=== PATIENT | male | born 1940 | race Caucasian/White ===

== ENCOUNTER 2016-12-11 19:19 | Inpatient (IN) | payer MEDICARE, OTHER ==
[~2016-12-11 19:19] MED LIST: ALBUTEROL0.83 MG/ML INH; AMLODIPINE BESYL5 MG PO; ASPIR 8181 M1 PO; AVELOX400 MG PO; BYSTOLIC5 M1 PO; CALCIUM + VITA1 EAC4 PO; CALCIUM W/VITA PO; CARDURA8 M1 PO; CARDURA8 MG PO; CELLCEPT250 M1 PO; DIALYVITE TABL1 EACH PO; ECULIZUMAB IV; FINASTERIDE5 M2 PO; FISH OIL 1,0001 CA PO; FISH OIL 1,0001 EA10 PO; HYCODAN SYRUP480 ML PO; NULOJIX250 MG IV; OMEPRAZOLE20 M3 PO; PENICILLIN V P500 M1 PO; PRAVACHOL40 M1 PO; PRAVACHOL40 MG PO; PREDNISONE5 M1 PO; STERAPRED5 MG/DOSE- PO; ZYLOPRIM100 M1 PO; ZYLOPRIM100 MG PO; [UNRECOGNIZED DRUG - OTHER] PO
[2016-12-11] MEDS ORDERED: COZAAR25 M1 PO (19:37)
[2016-12-11] MEDS ORDERED: ASPIRIN EC81 MG PO (19:38)
[2016-12-11 20:08] LABS: URINE BILIRUBIN NEGATIVE (NEG); URINE BLOOD LARGE (NEG); URINE GLUCOSE (UA) NEGATIVE (NEG); URINE KETONE NEGATIVE (NEG); URINE LEUKOCYTE ESTERASE POSITIVE (NEG); URINE NITRITE NEGATIVE (NEG); URINE PROTEIN LARGE (NEG); URINE SPECIFIC GRAVITY 1.005 (1.003-1.030)
[2016-12-11 20:09] LABS: URINE APPEARANCE CLEAR; URINE COLOR YELLOW
[2016-12-11 20:13] LABS: URINE BACTERIA 3+; URINE EPITHELIAL CELLS 0 /[HPF] (0-10)
[2016-12-11 20:14] LABS: URINE RBC 15-25 /[HPF] (0-5)
[2016-12-11 20:17] LABS: URINE WBC 20-30 /[HPF] (0-5)
[2016-12-11 20:29] LABS: BASO % 0.5 % (0-2); EOS % 0.7 % (0-7); HGB-HEMOGLOBIN 10.4 gm/dl (13.5-17.0); IMMATURE GRANULOCYTES ABSOLUTE 0.03 tho/cmm (0-0.03); IMMATURE GRANULOCYTES PERCENT 0.7 % (0-0.3); LYMPH % 20.1 % (20-45); LYMPH ABSOLUTE COUNT 0.8 tho/cmm (0.8-4.5); MCH (MEAN CORPUSCULAR HGB) 30.7 pg (28.0-32.0); MCHC MEAN CORPUSCULAR HGB CONC 33.5 % (32.0-36.0); MCV (MEAN CELL VOLUME) 91.4 fl (82.0-96.0); MEAN PLATELET VOLUME 8.5 cmc (9.4-12.4); MONO % 16.7 % (0-12); MONOCYTE ABSOLUTE COUNT 0.7 tho/cmm (0.0-1.2); NEUTROPHIL ABSOLUTE COUNT 2.5 tho/cmm (1.6-8.0); NEUTROPHIL-AUTOMATED 2.5 tho/cmm (1.6-8.0); NEUTROPHILS % 61.3 % (40-80); PLATELET COUNT 279 tho/cmm (150-450); RED BLOOD COUNT 3.39 mil/cmm (4.40-5.70); RED CELL DISTRIBUTION WIDTH 12.4 % (12.4-16.4); WHITE BLOOD COUNT 4.1 tho/cmm (4.0-10.0)
[2016-12-11 20:40] LABS: ALBUMIN 3.2 g/dl (3.5-5.0); ALKALINE PHOSPHATASE 106 U/L (33-138); ALT/SGPT 27 U/L (12-78); ANION GAP 12 mmol/L (0-20); AST/SGOT 43 U/L (10-40); BILIRUBIN,TOTAL 0.2 mg/dl (0.0-1.5); BLOOD UREA NITROGEN 37 mg/dl (6-24); CALCIUM 8.3 mg/dl (8.5-10.5); CARBON DIOXIDE-VENOUS 27 mmol/L (22-32); CHLORIDE 99 mmol/l (96-110); CREATININE 1.77 mg/dl (0.60-1.30); GLUCOSE 101 mg/dL (70-110); POTASSIUM 4.6 mmol/L (3.7-5.1); SODIUM 133 mmol/L (135-145); eGFR VALUE FOR BLACK 43 mL/Min
[2016-12-11 20:55] LABS: PROCALCITONIN 0.08 ng/ml (0.05-0.09)
[2016-12-12 05:32] LABS: BASO % 0.5 % (0-2); EOS % 0.3 % (0-7); HCT-HEMATOCRIT 26.5 % (36.0-53.5); HGB-HEMOGLOBIN 8.9 gm/dl (13.5-17.0); IMMATURE GRANULOCYTES ABSOLUTE 0.02 tho/cmm (0-0.03); IMMATURE GRANULOCYTES PERCENT 0.5 % (0-0.3); LYMPH % 18.9 % (20-45); LYMPH ABSOLUTE COUNT 0.8 tho/cmm (0.8-4.5); MCH (MEAN CORPUSCULAR HGB) 30.4 pg (28.0-32.0); MCHC MEAN CORPUSCULAR HGB CONC 33.6 % (32.0-36.0); MCV (MEAN CELL VOLUME) 90.4 fl (82.0-96.0); MEAN PLATELET VOLUME 8.2 cmc (9.4-12.4); MONO % 20.5 % (0-12); MONOCYTE ABSOLUTE COUNT 0.8 tho/cmm (0.0-1.2); NEUTROPHIL ABSOLUTE COUNT 2.4 tho/cmm (1.6-8.0); NEUTROPHIL-AUTOMATED 2.4 tho/cmm (1.6-8.0); NEUTROPHILS % 59.3 % (40-80); PLATELET COUNT 223 tho/cmm (150-450); RED BLOOD COUNT 2.93 mil/cmm (4.40-5.70); RED CELL DISTRIBUTION WIDTH 12.5 % (12.4-16.4)
[2016-12-12 05:48] LABS: ANION GAP 14 mmol/L (0-20); BLOOD UREA NITROGEN 36 mg/dl (6-24); CALCIUM 7.4 mg/dl (8.5-10.5); CARBON DIOXIDE-VENOUS 23 mmol/L (22-32); CHLORIDE 105 mmol/l (96-110); CREATININE 1.93 mg/dl (0.60-1.30); GLUCOSE 98 mg/dL (70-110); MAGNESIUM 2.3 mg/dl (1.3-2.6); PHOSPHOROUS 3.4 mg/dl (2.5-4.9); POTASSIUM 4.4 mmol/L (3.7-5.1); SODIUM 138 mmol/L (135-145); eGFR VALUE FOR BLACK 38 mL/Min
[2016-12-12 06:35] LABS: PROCALCITONIN 0.12 ng/ml (0.05-0.09)
[2016-12-12] MEDS ORDERED: INVANZ1000 MG/VI IV (15:07)
[2016-12-13 03:20] LABS: URINE PRT/CR RATIO 5.47 Ratio (0.0-0.20)
[2016-12-13 03:22] LABS: URINE TOTAL PROTEIN-RANDOM 487.2 mg/dl (<11.8)
[2016-12-13 06:22] LABS: ANION GAP 13 mmol/L (0-20); BLOOD UREA NITROGEN 38 mg/dl (6-24); CALCIUM 7.3 mg/dl (8.5-10.5); CARBON DIOXIDE-VENOUS 24 mmol/L (22-32); CHLORIDE 108 mmol/l (96-110); FERRITIN 509 ng/ml (22-388); GLUCOSE 99 mg/dL (70-110); MAGNESIUM 2.5 mg/dl (1.3-2.6); PHOSPHOROUS 4.4 mg/dl (2.5-4.9); POTASSIUM 4.1 mmol/L (3.7-5.1); SODIUM 141 mmol/L (135-145); eGFR VALUE FOR BLACK 29 mL/Min
[2016-12-13 06:27] LABS: BASO % 0.2 % (0-2); HGB-HEMOGLOBIN 9.2 gm/dl (13.5-17.0); IMMATURE GRANULOCYTES ABSOLUTE 0.12 tho/cmm (0-0.03); IMMATURE GRANULOCYTES PERCENT 2.3 % (0-0.3); LYMPH % 12.8 % (20-45); LYMPH ABSOLUTE COUNT 0.7 tho/cmm (0.8-4.5); MCHC MEAN CORPUSCULAR HGB CONC 32.9 % (32.0-36.0); MCV (MEAN CELL VOLUME) 91.2 fl (82.0-96.0); MEAN PLATELET VOLUME 8.8 cmc (9.4-12.4); MONO % 16.8 % (0-12); MONOCYTE ABSOLUTE COUNT 0.9 tho/cmm (0.0-1.2); NEUTROPHIL ABSOLUTE COUNT 3.6 tho/cmm (1.6-8.0); NEUTROPHIL-AUTOMATED 3.6 tho/cmm (1.6-8.0); NEUTROPHILS % 67.9 % (40-80); PLATELET COUNT 184 tho/cmm (150-450); RED BLOOD COUNT 3.07 mil/cmm (4.40-5.70); RED CELL DISTRIBUTION WIDTH 12.8 % (12.4-16.4); WHITE BLOOD COUNT 5.3 tho/cmm (4.0-10.0)
[2016-12-13 06:32] LABS: IRON BINDING CAPACITY 170 ug/dl (250-450)
[2016-12-13 06:47] LABS: CREATININE 2.45 mg/dl (0.60-1.30)
[2016-12-13 07:00] LABS: IRON <10 ug/dl (49-181)
[2016-12-13 17:22] LABS: URINE CREATININE-RANDOM 123 mg/dl (30-125); URINE SODIUM-RANDOM 14 mmol/L (20-110)
[2016-12-14 05:13] LABS: EOS % 0.8 % (0-7); HCT-HEMATOCRIT 25.2 % (36.0-53.5); HGB-HEMOGLOBIN 8.3 gm/dl (13.5-17.0); IMMATURE GRANULOCYTES ABSOLUTE 0.02 tho/cmm (0-0.03); IMMATURE GRANULOCYTES PERCENT 0.5 % (0-0.3); LYMPH % 22.8 % (20-45); LYMPH ABSOLUTE COUNT 0.9 tho/cmm (0.8-4.5); MCHC MEAN CORPUSCULAR HGB CONC 32.9 % (32.0-36.0); MEAN PLATELET VOLUME 8.8 cmc (9.4-12.4); MONO % 18.8 % (0-12); MONOCYTE ABSOLUTE COUNT 0.7 tho/cmm (0.0-1.2); NEUTROPHIL ABSOLUTE COUNT 2.1 tho/cmm (1.6-8.0); NEUTROPHIL-AUTOMATED 2.1 tho/cmm (1.6-8.0); NEUTROPHILS % 57.1 % (40-80); PLATELET COUNT 134 tho/cmm (150-450); RED BLOOD COUNT 2.77 mil/cmm (4.40-5.70); RED CELL DISTRIBUTION WIDTH 12.7 % (12.4-16.4); WHITE BLOOD COUNT 3.7 tho/cmm (4.0-10.0)
[2016-12-14 05:28] LABS: ALB/GLOB RATIO 0.6 (0.8-2.0); ALBUMIN 1.8 g/dl (3.5-5.0); ALKALINE PHOSPHATASE 61 U/L (33-138); ALT/SGPT 28 U/L (12-78); ANION GAP 11 mmol/L (0-20); AST/SGOT 36 U/L (10-40); BILIRUBIN,TOTAL 0.1 mg/dl (0.0-1.5); BLOOD UREA NITROGEN 46 mg/dl (6-24); C-REACTIVE PROTEIN 13.8 mg/dl (0-0.9); CARBON DIOXIDE-VENOUS 24 mmol/L (22-32); CHLORIDE 109 mmol/l (96-110); CREATININE 2.76 mg/dl (0.60-1.30); GLUCOSE 102 mg/dL (70-110); POTASSIUM 3.9 mmol/L (3.7-5.1); SODIUM 140 mmol/L (135-145); eGFR VALUE FOR BLACK 25 mL/Min
[2016-12-15 05:28] LABS: ALBUMIN 1.8 g/dl (3.5-5.0); ANION GAP 15 mmol/L (0-20); BLOOD UREA NITROGEN 46 mg/dl (6-24); C-REACTIVE PROTEIN 8.4 mg/dl (0-0.9); CALCIUM 7.4 mg/dl (8.5-10.5); CARBON DIOXIDE-VENOUS 22 mmol/L (22-32); CHLORIDE 108 mmol/l (96-110); CREATININE 2.89 mg/dl (0.60-1.30); GLUCOSE 89 mg/dL (70-110); PHOSPHOROUS 4.3 mg/dl (2.5-4.9); POTASSIUM 3.7 mmol/L (3.7-5.1); SODIUM 141 mmol/L (135-145); eGFR VALUE FOR BLACK 24 mL/Min
[2016-12-15 06:19] LABS: PROCALCITONIN 0.48 ng/ml (0.05-0.09)
[2016-12-16 05:06] LABS: EOS % 1.5 % (0-7); HCT-HEMATOCRIT 24.8 % (36.0-53.5); HGB-HEMOGLOBIN 8.2 gm/dl (13.5-17.0); IMMATURE GRANULOCYTES ABSOLUTE 0.05 tho/cmm (0-0.03); IMMATURE GRANULOCYTES PERCENT 2.5 % (0-0.3); MCHC MEAN CORPUSCULAR HGB CONC 33.1 % (32.0-36.0); MCV (MEAN CELL VOLUME) 90.8 fl (82.0-96.0); MEAN PLATELET VOLUME 8.9 cmc (9.4-12.4); MONO % 21.8 % (0-12); MONOCYTE ABSOLUTE COUNT 0.4 tho/cmm (0.0-1.2); NEUTROPHIL ABSOLUTE COUNT 0.6 tho/cmm (1.6-8.0); NEUTROPHIL-AUTOMATED 0.6 tho/cmm (1.6-8.0); NEUTROPHILS % 27.2 % (40-80); PLATELET COUNT 152 tho/cmm (150-450); RED BLOOD COUNT 2.73 mil/cmm (4.40-5.70); RED CELL DISTRIBUTION WIDTH 12.6 % (12.4-16.4)
[2016-12-16 05:22] LABS: ANION GAP 14 mmol/L (0-20); BLOOD UREA NITROGEN 50 mg/dl (6-24); CALCIUM 7.4 mg/dl (8.5-10.5); CARBON DIOXIDE-VENOUS 21 mmol/L (22-32); CHLORIDE 110 mmol/l (96-110); CREATININE 3.18 mg/dl (0.60-1.30); GLUCOSE 88 mg/dL (70-110); SODIUM 141 mmol/L (135-145); eGFR VALUE FOR BLACK 21 mL/Min
[2016-12-17 06:25] LABS: EOS % 2.4 % (0-7); EOSINOPHIL ABSOLUTE COUNT 0.1 tho/cmm (0.0-0.7); HCT-HEMATOCRIT 24.8 % (36.0-53.5); HGB-HEMOGLOBIN 8.4 gm/dl (13.5-17.0); IMMATURE GRANULOCYTES ABSOLUTE 0.02 tho/cmm (0-0.03); LYMPH % 49.3 % (20-45); MCH (MEAN CORPUSCULAR HGB) 30.4 pg (28.0-32.0); MCHC MEAN CORPUSCULAR HGB CONC 33.9 % (32.0-36.0); MCV (MEAN CELL VOLUME) 89.9 fl (82.0-96.0); MEAN PLATELET VOLUME 8.9 cmc (9.4-12.4); MONO % 19.1 % (0-12); MONOCYTE ABSOLUTE COUNT 0.4 tho/cmm (0.0-1.2); NEUTROPHIL ABSOLUTE COUNT 0.6 tho/cmm (1.6-8.0); NEUTROPHIL-AUTOMATED 0.6 tho/cmm (1.6-8.0); NEUTROPHILS % 28.2 % (40-80); PLATELET COUNT 191 tho/cmm (150-450); RED BLOOD COUNT 2.76 mil/cmm (4.40-5.70); RED CELL DISTRIBUTION WIDTH 12.5 % (12.4-16.4); WHITE BLOOD COUNT 2.1 tho/cmm (4.0-10.0)
[2016-12-17 06:27] LABS: CHLORIDE 114 mmol/l (96-110); POTASSIUM 4.2 mmol/L (3.7-5.1); SODIUM 143 mmol/L (135-145)
[2016-12-17 06:34] LABS: ALBUMIN 1.8 g/dl (3.5-5.0); ANION GAP 15 mmol/L (0-20); BLOOD UREA NITROGEN 54 mg/dl (6-24); C-REACTIVE PROTEIN 3.6 mg/dl (0-0.9); CALCIUM 7.4 mg/dl (8.5-10.5); CARBON DIOXIDE-VENOUS 18 mmol/L (22-32); CREATININE 3.02 mg/dl (0.60-1.30); GLUCOSE 88 mg/dL (70-110); PHOSPHOROUS 4.8 mg/dl (2.5-4.9); eGFR VALUE FOR BLACK 22 mL/Min
[2016-12-17 06:42] LABS: PROCALCITONIN 0.17 ng/ml (0.05-0.09)
[2016-12-17] MEDS ORDERED: STOP THE FOLLOWING (13:03)
== END 2016-12-17 16:30 | DRG 872 ==
LOC: EDMED 19:19 → EMR2 23:18 → 5WE 12-12 00:24
PROVIDERS: Emergency Medicine; Internal Medicine; Internal Medicine Infectious Disease; Internal Medicine Nephrology; ADMIT Internal Medicine
PROC: 02HV33Z Insertion of Infusion Device into Superior Vena Cava, Percutaneous Approach (ICD-10-PCS; principal; 2016-12-13)
DX: A41.89 Other specified sepsis (principal); N17.9 Acute kidney failure, unspecified; D69.6 Thrombocytopenia, unspecified; E87.1 Hypo-osmolality and hyponatremia; N11.1 Chronic obstructive pyelonephritis; Z94.0 Kidney transplant status; N10 Acute pyelonephritis; E61.1 Iron deficiency; B96.1 Klebsiella pneumoniae [K. pneumoniae] as the cause of diseases classified elsewhere; E78.5 Hyperlipidemia, unspecified; Z79.899 Other long term (current) drug therapy; I12.9 Hypertensive chronic kidney disease with stage 1 through stage 4 chronic kidney disease, or unspecified chronic kidney disease; N18.9 Chronic kidney disease, unspecified; I65.29 Occlusion and stenosis of unspecified carotid artery; R60.0 Localized edema; Z79.82 Long term (current) use of aspirin; Z88.8 Allergy status to other drugs, medicaments and biological substances
CPT/HCPCS: A9562; C1751; J1335; J1650; J1940; J2405; J2543; J7030; J7512; J7517

== ENCOUNTER 2017-03-16 09:37 | Inpatient (IN) | payer MEDICARE, OTHER ==
[~2017-03-16 09:37] MED LIST changes: +ASPIRIN EC81 MG PO; +COZAAR25 M1 PO; +INVANZ1000 MG/VI IV; +STOP THE FOLLOWING
[2017-03-16] MEDS ORDERED: CELLCEPT250 M1 PO (10:09)
[2017-03-16 10:29] LABS: BASO % 0.3 % (0-2); EOS % 0.8 % (0-7); EOSINOPHIL ABSOLUTE COUNT 0.1 tho/cmm (0.0-0.7); HCT-HEMATOCRIT 27.6 % (36.0-53.5); HGB-HEMOGLOBIN 9.4 gm/dl (13.5-17.0); IMMATURE GRANULOCYTES ABSOLUTE 0.24 tho/cmm (0-0.03); LYMPH % 9.9 % (20-45); LYMPH ABSOLUTE COUNT 0.6 tho/cmm (0.8-4.5); MCH (MEAN CORPUSCULAR HGB) 30.8 pg (28.0-32.0); MCHC MEAN CORPUSCULAR HGB CONC 34.1 % (32.0-36.0); MCV (MEAN CELL VOLUME) 90.5 fl (82.0-96.0); MEAN PLATELET VOLUME 8.2 cmc (9.4-12.4); MONO % 12.7 % (0-12); MONOCYTE ABSOLUTE COUNT 0.8 tho/cmm (0.0-1.2); NEUTROPHIL ABSOLUTE COUNT 4.4 tho/cmm (1.6-8.0); NEUTROPHIL-AUTOMATED 4.4 tho/cmm (1.6-8.0); NEUTROPHILS % 72.3 % (40-80); PLATELET COUNT 303 tho/cmm (150-450); RED BLOOD COUNT 3.05 mil/cmm (4.40-5.70); RED CELL DISTRIBUTION WIDTH 13.5 % (12.4-16.4)
[2017-03-16] MEDS ORDERED: MULTIVITAMINS1 EAC7 PO (10:45)
[2017-03-16 10:49] LABS: URINE APPEARANCE CLEAR; URINE BILIRUBIN NEGATIVE (NEG); URINE BLOOD LARGE (NEG); URINE COLOR YELLOW; URINE GLUCOSE (UA) NEGATIVE (NEG); URINE KETONE NEGATIVE (NEG); URINE LEUKOCYTE ESTERASE NEGATIVE (NEG); URINE NITRITE NEGATIVE (NEG); URINE PROTEIN LARGE (NEG)
[2017-03-16 10:51] LABS: ALB/GLOB RATIO 0.8 (0.8-2.0); ALBUMIN 2.6 g/dl (3.5-5.0); ALKALINE PHOSPHATASE 81 U/L (33-138); ALT/SGPT 23 U/L (12-78); ANION GAP 13 mmol/L (0-20); AST/SGOT 38 U/L (10-40); BILIRUBIN,TOTAL 0.3 mg/dl (0.0-1.5); BLOOD UREA NITROGEN 41 mg/dl (6-24); CALCIUM 8.1 mg/dl (8.5-10.5); CARBON DIOXIDE-VENOUS 24 mmol/L (22-32); CHLORIDE 106 mmol/l (96-110); CREATININE 2.08 mg/dl (0.60-1.30); GLUCOSE 97 mg/dL (70-110); MAGNESIUM 2.3 mg/dl (1.8-2.6); PHOSPHOROUS 3.3 mg/dl (2.5-4.9); POTASSIUM 4.5 mmol/L (3.7-5.1); SODIUM 138 mmol/L (135-145); eGFR VALUE FOR BLACK 35 mL/Min
[2017-03-16 10:56] LABS: URINE MUCUS 1+; URINE WBC 0-2 /[HPF] (0-5)
[2017-03-16 11:18] LABS: PROCALCITONIN 0.14 ng/ml (0.05-0.09)
[2017-03-16] MEDS ORDERED: COZAAR50 M1 PO (12:09)
[2017-03-16] MEDS ORDERED: NORVASC10 M2 PO (12:09)
--- NOTE | 2017-03-17 15:59 | NUR ---
VIRTUAL CARE NOTE: CHECKED ON PT AT THIS TIME. HE'S RESTING COMFORTABLY. WENT OVER CARE PLAN AND ORDERS FOR CXR AND LAB WORK TOMORROW. HE HAS NO FURTHER QUESTIONS OR NEEDS. WILL CONTINUE TO MONITOR. CALL LIGHT WITHIN REACH. ELECTRONIC CHART REVIEWED.
[2017-03-17 16:05] LABS: URINE PRT/CR RATIO 2.34 Ratio (0.0-0.20); URINE TOTAL PROTEIN-RANDOM 325.4 mg/dl (<11.8)
[2017-03-18 06:00] LABS: BASO % 0.2 % (0-2); EOS % 1.1 % (0-7); EOSINOPHIL ABSOLUTE COUNT 0.1 tho/cmm (0.0-0.7); HGB-HEMOGLOBIN 7.5 gm/dl (13.5-17.0); IMMATURE GRANULOCYTES ABSOLUTE 0.06 tho/cmm (0-0.03); IMMATURE GRANULOCYTES PERCENT 1.1 % (0-0.3); LYMPH % 16.1 % (20-45); LYMPH ABSOLUTE COUNT 0.9 tho/cmm (0.8-4.5); MCHC MEAN CORPUSCULAR HGB CONC 33.2 % (32.0-36.0); MCV (MEAN CELL VOLUME) 90.4 fl (82.0-96.0); MEAN PLATELET VOLUME 8.3 cmc (9.4-12.4); MONO % 11.8 % (0-12); MONOCYTE ABSOLUTE COUNT 0.7 tho/cmm (0.0-1.2); NEUTROPHIL ABSOLUTE COUNT 3.9 tho/cmm (1.6-8.0); NEUTROPHIL-AUTOMATED 3.9 tho/cmm (1.6-8.0); NEUTROPHILS % 69.7 % (40-80); PLATELET COUNT 235 tho/cmm (150-450); RED CELL DISTRIBUTION WIDTH 13.5 % (12.4-16.4); WHITE BLOOD COUNT 5.6 tho/cmm (4.0-10.0)
[2017-03-18 06:06] LABS: HCT-HEMATOCRIT 22.6 % (36.0-53.5)
[2017-03-18 06:10] LABS: ANION GAP 14 mmol/L (0-20); BLOOD UREA NITROGEN 54 mg/dl (6-24); C-REACTIVE PROTEIN 16.9 mg/dl (0-0.9); CALCIUM 7.5 mg/dl (8.5-10.5); CARBON DIOXIDE-VENOUS 23 mmol/L (22-32); CHLORIDE 103 mmol/l (96-110); GLUCOSE 96 mg/dL (70-110); MAGNESIUM 2.5 mg/dl (1.8-2.6); SODIUM 136 mmol/L (135-145); eGFR VALUE FOR BLACK 21 mL/Min
[2017-03-18 06:16] LABS: CREATININE 3.23 mg/dl (0.60-1.30)
--- NOTE | 2017-03-18 20:08 | NUR ---
VIRTUAL CARE NOTE: PT. IN BED, STATES JUST HAD A BREATHING TX AND FEELS JUST FINE, DOESN'T FEEL SICK. DENIES PAIN ALSO. ENCOURAGED USE OF TRUMPET VALVE AND TO COUGH AND DEEP BREATHE. ALSO INSTRUCTED TO CALL FOR FURTHER NEEDS. INQUIRED ABOUT MEDS FOR TONIGHT. INFORMATION PROVIDED. STATES VERBAL UNDERSTANDING.
[2017-03-19 06:06] LABS: BASO % 0.2 % (0-2); EOS % 2.2 % (0-7); EOSINOPHIL ABSOLUTE COUNT 0.1 tho/cmm (0.0-0.7); HGB-HEMOGLOBIN 8.1 gm/dl (13.5-17.0); IMMATURE GRANULOCYTES ABSOLUTE 0.04 tho/cmm (0-0.03); LYMPH % 26.9 % (20-45); LYMPH ABSOLUTE COUNT 1.1 tho/cmm (0.8-4.5); MCH (MEAN CORPUSCULAR HGB) 30.5 pg (28.0-32.0); MCHC MEAN CORPUSCULAR HGB CONC 33.9 % (32.0-36.0); MCV (MEAN CELL VOLUME) 89.8 fl (82.0-96.0); MONO % 13.6 % (0-12); MONOCYTE ABSOLUTE COUNT 0.6 tho/cmm (0.0-1.2); NEUTROPHIL ABSOLUTE COUNT 2.3 tho/cmm (1.6-8.0); NEUTROPHIL-AUTOMATED 2.3 tho/cmm (1.6-8.0); NEUTROPHILS % 56.1 % (40-80); PLATELET COUNT 262 tho/cmm (150-450); RED BLOOD COUNT 2.66 mil/cmm (4.40-5.70); RED CELL DISTRIBUTION WIDTH 13.2 % (12.4-16.4); WHITE BLOOD COUNT 4.1 tho/cmm (4.0-10.0)
[2017-03-19 06:07] LABS: HCT-HEMATOCRIT 23.9 % (36.0-53.5)
[2017-03-19 06:20] LABS: ALBUMIN 1.9 g/dl (3.5-5.0); ANION GAP 14 mmol/L (0-20); BLOOD UREA NITROGEN 58 mg/dl (6-24); C-REACTIVE PROTEIN 10.7 mg/dl (0-0.9); CALCIUM 7.6 mg/dl (8.5-10.5); CARBON DIOXIDE-VENOUS 23 mmol/L (22-32); CHLORIDE 103 mmol/l (96-110); CREATININE 3.11 mg/dl (0.60-1.30); GLUCOSE 90 mg/dL (70-110); PHOSPHOROUS 4.6 mg/dl (2.5-4.9); POTASSIUM 3.9 mmol/L (3.7-5.1); SODIUM 136 mmol/L (135-145); eGFR VALUE FOR BLACK 22 mL/Min
[2017-03-19 07:01] LABS: PROCALCITONIN 0.71 ng/ml (0.05-0.09)
[2017-03-19 14:05] LABS: URINE BILIRUBIN NEGATIVE (NEG); URINE BLOOD LARGE (NEG); URINE GLUCOSE (UA) NEGATIVE (NEG); URINE KETONE NEGATIVE (NEG); URINE LEUKOCYTE ESTERASE NEGATIVE (NEG); URINE NITRITE NEGATIVE (NEG); URINE PROTEIN LARGE (NEG); URINE SPECIFIC GRAVITY 1.015 (1.003-1.030)
[2017-03-19 14:06] LABS: URINE APPEARANCE HAZY; URINE COLOR YELLOW
[2017-03-19 14:18] LABS: URINE RBC 15-20 /[HPF] (0-5)
[2017-03-19 14:19] LABS: URINE BACTERIA 1+; URINE EPITHELIAL CELLS 0-1 /[HPF] (0-10)
[2017-03-19 14:23] LABS: URINE CREATININE-RANDOM 94 mg/dl (30-125); URINE SODIUM-RANDOM 21 mmol/L (20-110)
--- NOTE | 2017-03-19 16:59 | NUR ---
VIRTUAL CARE NOTE: VISITED W/ PT AT THIS TIME. HE'S SITTING UP IN HIS CHAIR, READING A BOOK. HAS NO NEEDS OR QUESTIONS AT THIS TIME. REALLY HOPING TO GO HOME SOON, HE FEELS GOOD. ENCOURAGED HIM TO CALL STAFF IF HE NEEDS ANYTHING AT ALL OR IF HE HAS QUESTIONS. WILL CONTINUE TO MONITOR. ELECTRONIC CHART REVIEWED.
[2017-03-20 05:42] LABS: BASO % 0.3 % (0-2); EOS % 3.9 % (0-7); EOSINOPHIL ABSOLUTE COUNT 0.1 tho/cmm (0.0-0.7); HGB-HEMOGLOBIN 7.7 gm/dl (13.5-17.0); IMMATURE GRANULOCYTES ABSOLUTE 0.02 tho/cmm (0-0.03); IMMATURE GRANULOCYTES PERCENT 0.6 % (0-0.3); LYMPH ABSOLUTE COUNT 1.2 tho/cmm (0.8-4.5); MCH (MEAN CORPUSCULAR HGB) 30.3 pg (28.0-32.0); MCHC MEAN CORPUSCULAR HGB CONC 33.9 % (32.0-36.0); MCV (MEAN CELL VOLUME) 89.4 fl (82.0-96.0); MONO % 16.2 % (0-12); MONOCYTE ABSOLUTE COUNT 0.5 tho/cmm (0.0-1.2); NEUTROPHIL ABSOLUTE COUNT 1.4 tho/cmm (1.6-8.0); NEUTROPHIL-AUTOMATED 1.4 tho/cmm (1.6-8.0); PLATELET COUNT 292 tho/cmm (150-450); RED BLOOD COUNT 2.54 mil/cmm (4.40-5.70); RED CELL DISTRIBUTION WIDTH 12.9 % (12.4-16.4); WHITE BLOOD COUNT 3.3 tho/cmm (4.0-10.0)
[2017-03-20 05:44] LABS: ALB/GLOB RATIO 0.5 (0.8-2.0); ALBUMIN 1.8 g/dl (3.5-5.0); ALKALINE PHOSPHATASE 69 U/L (33-138); ALT/SGPT 18 U/L (12-78); ANION GAP 14 mmol/L (0-20); AST/SGOT 24 U/L (10-40); BILIRUBIN,TOTAL 0.3 mg/dl (0.0-1.5); BLOOD UREA NITROGEN 64 mg/dl (6-24); CALCIUM 7.7 mg/dl (8.5-10.5); CARBON DIOXIDE-VENOUS 23 mmol/L (22-32); CHLORIDE 104 mmol/l (96-110); GLUCOSE 89 mg/dL (70-110); MAGNESIUM 2.6 mg/dl (1.8-2.6); PHOSPHOROUS 5.1 mg/dl (2.5-4.9); SODIUM 137 mmol/L (135-145); eGFR VALUE FOR BLACK 23 mL/Min
[2017-03-20 05:55] LABS: HCT-HEMATOCRIT 22.7 % (36.0-53.5)
[2017-03-20] MEDS ORDERED: LEVAQUIN750 M1 PO (11:39)
== END 2017-03-20 13:30 | DRG 194 ==
LOC: EDMED 09:37 → EMR2 14:05 → 5WD 16:35
PROVIDERS: Emergency Medicine; Internal Medicine Gastroenterology; Internal Medicine Nephrology; ADMIT Family Medicine
DX: J18.9 Pneumonia, unspecified organism (principal); Z94.0 Kidney transplant status; T86.19 Other complication of kidney transplant; N18.4 Chronic kidney disease, stage 4 (severe); N17.9 Acute kidney failure, unspecified; D63.1 Anemia in chronic kidney disease; N08 Glomerular disorders in diseases classified elsewhere; E83.39 Other disorders of phosphorus metabolism; Y95 Nosocomial condition; Z79.899 Other long term (current) drug therapy; E78.5 Hyperlipidemia, unspecified; Z79.82 Long term (current) use of aspirin; I12.9 Hypertensive chronic kidney disease with stage 1 through stage 4 chronic kidney disease, or unspecified chronic kidney disease
CPT/HCPCS: J0885; J1956; J2543; J3370; J7030; J7512; J7517